=== PATIENT | female | born 1975 | race Two or more races ===

== ENCOUNTER 2018-01-13 04:57 | Emergency (ER) | payer BC ==
[~2018-01-13] VITALS: Ht 152.4 cm; Wt 92.5 kg
[2018-01-13] MEDS ORDERED: ALBUTEROL SULF 2.5 MG/0.5ML(0.5%) NEB SOLN NEB ONE (07:15)
[2018-01-13] MEDS ORDERED: IPRATROPIUM BROM 0.5 MG/2.5ML INH SOL NEB ONE (07:15)
[2018-01-13] MEDS ORDERED: methylPREDNISolone SOD SUCC 125 MG/2 ML VL IV ONE (07:15)
[2018-01-13 07:16] LABS: Urine Bacteria NONE SEEN /hpf (None Seen); Urine Blood 2+ /uL (Negative); Urine Specific Gravity 1.013 (1.001-1.035); Urine WBC 1 /hpf (0 - 5)
[2018-01-13 08:22] LABS: Basophils # (auto) 0 uL; Basophils % (auto) 0.6 % (0.0-2.0); Eosinophils # (auto) 0.1 uL; Eosinophils % (auto) 1.1 % (0.0-7.0); Hematocrit 36.5 % (36.0-46.0); Hemoglobin 12.8 g/dL (12.2-16.2); Lymphocytes # (auto) 1.2 uL; Lymphocytes % (auto) 16.3 % (10.0-50.0); Mean Corpuscular Hemoglobin 31.2 pg (28.0-32.0); Monocytes # (auto) 0.4 uL; Monocytes % (auto) 5.5 % (0.0-12.0); Neutrophils # (auto) 5.8 uL; Neutrophils % (auto) 76.5 % (37.0-80.0); Platelet Count (auto) 302 10^3/uL (140-450); Red Cell Distribution Width 13.8 % (11.8-14.3); White Blood Cell 7.6 10^3/uL (4.4-10.8)
[2018-01-13 08:39] LABS: Albumin 3.7 g/dL (3.4-5.0); Chloride 102 mmol/L (98-107); Potassium 3.3 mmol/L (3.5-5.1); Sodium 136 mmol/L (136-145)
[2018-01-13 08:40] LABS: Alanine Aminotransferase 29 U/L (13-56); Anion Gap 8 (5-15); Aspartate Aminotransferase 16 U/L (15-37); BUN/Creatinine Ratio 9.1; Blood Urea Nitrogen 7 mg/dL (7-18); Calcium 8.4 mg/dL (8.5-10.1); Carbon Dioxide 26 mmol/L (21-32); GFR African American 105 mL/min; GFR Non-African American 87 mL/min; Glucose 96 mg/dL (74-106); Magnesium 1.9 mg/dL (1.6-2.6)
[2018-01-13 08:48] LABS: Alkaline Phosphatase 108 U/L (45-117); Bilirubin, Total 0.3 mg/dL (0.2-1.0); Total Protein 7.2 g/dL (6.4-8.2)
[2018-01-13 09:42] VITALS: BP 159/89
== END 2018-01-13 09:59 | disposition home or self-care (01) ==
LOC: EDBD 04:57 → ER 05:03
DX: J45.909 Unspecified asthma, uncomplicated (principal); I10 Essential (primary) hypertension
CPT/HCPCS: 36415; 71046; 80053; 81001; 81025; 83735; 84484; 84702; 85025; 87804; 93005; 94640; 94761; 96374; 99285; J2930

== ENCOUNTER 2020-06-16 11:10 | Inpatient (IN) | payer BC ==
[~2020-06-16] VITALS: Ht 152.4 cm; Wt 85.7 kg
[2020-06-16] MEDS ORDERED: SODIUM CHLORIDE 0.9% 1,000 ML IVB ONE (11:47)
[2020-06-16] MEDS ORDERED: MORPHINE SULFATE 4 MG/ML SYR/VIAL IV ONE (12:00)
[2020-06-16] MEDS ORDERED: ONDANSETRON HCL 4 MG/2 ML VIAL IV ONE ×2 (12:00→12:45)
[2020-06-16] MEDS ORDERED: KETOROLAC TROMETH 30 MG/ML 1ML VIAL IV ONE (12:00)
[2020-06-16] MEDS ORDERED: HYDROmorphone HCL 2 MG/ML VL IV ONE (12:45)
[2020-06-16 13:21] LABS: Basophils # (auto) 0 10 ^3/uL (0-0.2); Basophils % (auto) 0.7 % (0.0-2.0); Eosinophils # (auto) 0.1 10 ^3/uL (0-0.8); Eosinophils % (auto) 3.8 % (0.0-7.0); Hematocrit 25.9 % (36.0-46.0); Hemoglobin 8.7 g/dL (12.2-16.2); Lymphocytes # (auto) 0.8 10 ^3/uL (0.4-5.4); Mean Corpuscular Hemoglobin 31.1 pg (28.0-32.0); Mean Corpuscular Hgb Conc. 33.8 g/dL (32.0-36.0); Monocytes # (auto) 0.2 10 ^3/uL (0-1.3); Monocytes % (auto) 6.3 % (0.0-12.0); Neutrophils # (auto) 2.3 10 ^3/uL (1.6-8.6); Neutrophils % (auto) 67.2 % (37.0-80.0); Nucleated Red Blood Cells % 0.1 %; Platelet Count (auto) 159 10^3/uL (140-450); Red Blood Cells 2.81 10^6/uL (4.0-5.20); White Blood Cell 3.5 10^3/uL (4.4-10.8)
[2020-06-16 13:42] LABS: Albumin 1.8 g/dL (3.4-5.0); Anion Gap 8 (5-15); Blood Urea Nitrogen 6 mg/dL (7-18); Carbon Dioxide 14 mmol/L (21-32); Chloride 127 mmol/L (98-107); Lipase 181 U/L (73-393); Sodium 149 mmol/L (136-145)
[2020-06-16 13:46] LABS: Alanine Aminotransferase 15 U/L (13-56); Alkaline Phosphatase 45 U/L (45-117); Aspartate Aminotransferase 10 U/L (15-37); Bilirubin, Total 0.2 mg/dL (0.2-1.0); GFR African American 685 mL/min; GFR Non-African American 566 mL/min; Total Protein 3.2 g/dL (6.4-8.2)
[2020-06-16 14:00] LABS: Potassium 1.9 mmol/L (3.5-5.1)
[2020-06-16 14:01] LABS: Calcium < 5.0 mg/dL (8.5-10.1); Glucose 49 mg/dL (74-106)
[2020-06-16 14:49] LABS: Albumin 3.7 g/dL (3.4-5.0); BUN/Creatinine Ratio 15.7; Calcium 8.4 mg/dL (8.5-10.1); Potassium 3.8 mmol/L (3.5-5.1)
[2020-06-16 14:52] LABS: Bilirubin, Total 0.5 mg/dL (0.2-1.0)
[2020-06-16] MEDS ORDERED: SOD CHL 0.9%/ KCL 20MEQ 1,000 ML IV ONE (15:00)
[2020-06-16] MEDS ORDERED: MORPHINE SULF INJ 2 MG/ML SYRINGE 1ML IV PRN (15:00)
[2020-06-16] MEDS ORDERED: NITROGLYCERIN 0.4 MG SL TAB SL PRN (15:00)
[2020-06-16] MEDS ORDERED: CARISOPRODOL 350 MG TAB PO PRN (15:45)
[2020-06-16 16:56] LABS: Urine WBC None Seen /hpf (0 - 5)
[2020-06-16 17:17] LABS: Urine Bacteria NONE SEEN /hpf (None Seen); Urine Blood Negative /uL (Negative); Urine Specific Gravity 1.008 (1.001-1.035)
[2020-06-16] MEDS ORDERED: LEVO125T7 PO (20:08)
[2020-06-16] MEDS ORDERED: QUET100T46 PO (20:08)
[2020-06-16] MEDS ORDERED: LISI-646 PO (20:08)
[2020-06-16] MEDS ORDERED: TRAM50TA2 PO (20:08)
[2020-06-16] MEDS ORDERED: SERT-160 PO (20:08)
[2020-06-16] MEDS ORDERED: ATOR20TA50 PO (20:08)
[2020-06-16] MEDS ORDERED: OXCA300T26 PO (20:08)
[2020-06-16] MEDS ORDERED: MONT10TA34 PO (20:08)
[2020-06-17 12:12] LABS: BUN/Creatinine Ratio 10.7; Calcium 8.6 mg/dL (8.5-10.1); Potassium 3.9 mmol/L (3.5-5.1)
[2020-06-17 14:30] VITALS: BP 137/98
--- NOTE | 2020-06-17 16:07 | NUR ---
RECEIVED PT TO ROOM 217 B AT APPROX. 1425. A/O X 4. DENIES PAIN[address] DR BEKA PRITCHARD IN ROOM, AWARE. VSS. CONTINUE TO MONITOR.
[2020-06-17 17:00] VITALS: BP 145/87
--- NOTE | 2020-06-17 17:02 | NUR ---
Assessment Patient is a 44-year-old female who is alert and oriented. Prior to admission patient lived home with family and functioned independently. Patient informed me she can care for her own ADLs. Per patient she does not have any medical equipment now. Per patient she will return to her prior living arrangements post discharge and family will transport her home. Advised patient there is a social service consult for home health safety evaluation and for outpatient refer to for evaluation of liver cirrhosis. Informed patient clinical information will be faxed to [facility] and [facility]. Informed patient she has a right to participate in all discharge planning. Patient verbalized understanding and agreed to discharge plan. Faxed clinical information to [facility] and [facility]. Placed follow up called to MICHELL Lemon regarding orders for patient. Per MICHELL Lemon she will provide this information to MICHELL Donald who will refer patient as an outpatient and will authorized home health. Addendum: 06/17/20 at 1702 by RYAN VILLELA Amended: Links added.
--- NOTE | 2020-06-17 17:57 | NUR ---
DISCHARGE INSTRUCTIONS GIVEN TO PATIENT. ALL APPROPRIATE PAPERWORK SIGNED. IV AND TELE BOX REMOVED. PT DISCHARGED HOME WITH FAMILY.
== END 2020-06-17 17:48 | disposition home health service (06) | DRG 392 ==
LOC: ER 11:10 → TELE 11:11 → TELE-CENTR 06-17 14:34
PROVIDERS: ADMIT Internal Medicine; ATTEND Internal Medicine
DX: K52.9 Noninfective gastroenteritis and colitis, unspecified (principal); E03.9 Hypothyroidism, unspecified; E78.5 Hyperlipidemia, unspecified; I10 Essential (primary) hypertension; J45.909 Unspecified asthma, uncomplicated; K42.9 Umbilical hernia without obstruction or gangrene; K44.9 Diaphragmatic hernia without obstruction or gangrene; K57.30 Diverticulosis of large intestine without perforation or abscess without bleeding; K74.60 Unspecified cirrhosis of liver; K76.0 Fatty (change of) liver, not elsewhere classified; F32.9 Major depressive disorder, single episode, unspecified; F41.9 Anxiety disorder, unspecified; Z88.6 Allergy status to analgesic agent; Z88.5 Allergy status to narcotic agent; Z83.3 Family history of diabetes mellitus; Z79.899 Other long term (current) drug therapy
CPT/HCPCS: 36415; 74176; 80048; 80053; 81001; 83690; 85025; G0378; J1885; J2405